=== PATIENT | female | born 1955 | race Caucasian/White ===

== ENCOUNTER 2017-04-04 15:59 | Emergency (ER) | payer OTHER ==
[~2017-04-04] VITALS: Wt 86.2 kg
[~2017-04-04 15:59] MED LIST: KEFLEX500 MG PO; MOTRIN800 MG PO; PRINIVIL10 MG PO; SYNTHROID,LEV100 MCG PO; ULTRAM50 MG PO; ZITHROMAX Z PA250 MG PO
[2017-04-04 16:02] VITALS: BP 153/92
[2017-04-04] MEDS ORDERED: LISINOPRIL10 M1 PO (16:02)
[2017-04-04] MEDS ORDERED: CYCLOBENZAPRINE10 MG PO (16:02)
[2017-04-04] MEDS ORDERED: LEVOTHYROXINE100 MC1 PO (16:03)
[2017-04-04] MEDS ORDERED: ALL DAY ALLERGY10 MG PO (16:03)
[2017-04-04] MEDS ORDERED: FLUTICASONE PRO15 GM T (16:03)
[2017-04-04] MEDS ORDERED: FAMOTIDINE20 M1 PO (16:03)
[2017-04-04 16:30] LABS: BASO % 0.3 % (0.0-1.0); EOS # 0.1 10*3/uL (0.0-0.4); EOS % 2.9 % (1.0-4.0); HEMATOCRIT 40.4 % (37.0-47.0); HEMOGLOBIN 13.4 g/dl (12.0-16.0); LYMPH # 1.4 10*3/uL (1.3-4.4); LYMPH % 36.4 % (27.0-41.0); MEAN CELL VOLUME 94.8 fl (81.0-99.0); MEAN CORPUSCULAR HGB 31.5 pg (27.0-31.0); MEAN CORPUSCULAR HGB CONC 33.2 g/dl (33.0-37.0); MEAN PLATELET VOLUME 9.7 fl (9.6-12.3); MONO # 0.3 10*3/uL (0.1-1.0); MONO % 8.5 % (3.0-9.0); NEUT # 1.9 10*3/uL (2.3-7.9); NEUT % 51.6 % (47.0-73.0); PLATELET COUNT AUTOMATED 289 10*3/uL (130-400); RED BLOOD COUNT 4.26 10*6/uL (4.10-5.10); RED CELL DISTRI WIDTH 13.9 % (0-14.5); WHITE BLOOD COUNT 3.8 10*3/uL (4.8-10.8)
[2017-04-04 17:02] LABS: ALBUMIN 3.4 gm/dl (3.1-4.5); ALKALINE PHOSPHATASE 94 U/L (45-117); BUN 13 mg/dl (7-24); CHLORIDE 105 mmol/L (98-107); CREATININE 0.94 mg/dL (0.55-1.02); LIPASE 148 U/L (73-393); POTASSIUM 3.3 mmol/L (3.5-5.1); SGOT/AST 29 IU/L (3-35); SGPT/ALT 43 U/L (12-78); SODIUM 142 mmol/L (136-145); TOTAL PROTEIN 7.5 gm/dL (6.4-8.2)
[2017-04-04] MEDS ORDERED: FLONASE ALLERG9.9 ML NAS (17:37)
[2017-04-04] MEDS ORDERED: CLARITIN10 MG PO (17:37)
[2017-04-04] MEDS ORDERED: ZITHROMAX250 MG PO (17:37)
[2017-04-04] MEDS ORDERED: PREDNISONE10 MG PO (17:37)
== END 2017-04-04 17:49 | disposition home or self-care (01) ==
LOC: ED 15:59
PROVIDERS: Nurse Practitioner Family
DX: J20.9 Acute bronchitis, unspecified (principal); R03.0 Elevated blood-pressure reading, without diagnosis of hypertension; Z88.5 Allergy status to narcotic agent

== ENCOUNTER 2017-04-28 10:25 | Emergency (ER) | payer OTHER ==
[~2017-04-28] VITALS: Wt 84.4 kg
[~2017-04-28 10:25] MED LIST changes: +ALL DAY ALLERGY10 MG PO; +CLARITIN10 MG PO; +CYCLOBENZAPRINE10 MG PO; +FAMOTIDINE20 M1 PO; +FLONASE ALLERG9.9 ML NAS; +FLUTICASONE PRO15 GM T; +LEVOTHYROXINE100 MC1 PO; +LISINOPRIL10 M1 PO; +PREDNISONE10 MG PO; +ZITHROMAX250 MG PO
[2017-04-28 10:59] VITALS: BP 156/92
[2017-04-28] MEDS ORDERED: DOXYCYCLINE100 M3 PO (14:01)
[2017-04-28] MEDS ORDERED: TESSALON PERLE100 M1 PO (14:01)
[2017-04-28] MEDS ORDERED: PROVENTIL HFA6.7 GM INH (14:01)
[2017-04-28] MEDS ORDERED: PREDNISONE20 M1 PO (14:01)
== END 2017-04-28 14:09 | disposition home or self-care (01) ==
LOC: ED
DX: J40 Bronchitis, not specified as acute or chronic (principal); Z88.5 Allergy status to narcotic agent; Z88.6 Allergy status to analgesic agent; Z79.899 Other long term (current) drug therapy